=== PATIENT | male | born 1990 | race Caucasian/White ===

== ENCOUNTER 2024-05-28 10:18 | Emergency (ER) | payer OTHER, SELFPAY ==
[2024-05-28 10:24] VITALS: BP 146/99; PULSE 83; RESP 16; TEMP 36.8; O2SAT 99; BMI 25.7
--- NOTE | 2024-05-28 10:31 | ED_ITS ---
HPI - Extremity Problem General: Chief complaint: Extremity Problem,Nontraumatic Stated complaint: MHE, SI left ankle pain Time Seen by Provider: 05/28/24 10:28 Source: patient Mode of arrival: ambulatory Limitations: no limitations History of Present Illness: 33-year-old male states he has been havi ng left foot pain for the last 2 years he states he is sprained it multiple times and has had continued pain over the inner portion of his left foot. States that he is on his feet for more an hour it causes a burning pain that is improved with rest. He states he is also been having extreme anxiety because he is out of his Prozac he denies SI or HI Associated symptoms: Deny chest pain, fever(s) or rash Review of Systems Const: Denies: fever(s), chills, body aches or change in appetite ENMT: Denies: throat pain or dental pain Card: Denies: chest pain Resp: Denies: dyspnea GI: Denies: abdominal pain, nausea, vomiting or diarrhea Musc: Reports: extremity pain; Denies: neck pain or back pain Skin/Breast: Denies: rash Neuro: Denies: headache(s) Physical Exam Const: COMMON NORMALS: no acute distress, patient oriented x3 and healthy appearing HENMT: COMMON NORMALS: normocephalic and atraumatic HEAD & SCALP: normocephalic and atraumatic Eye: COMMON NORMALS: conjunctivae normal CONJUNCTIVA: Yes conjunctivae normal Neck/C-Spine: COMMON NORMALS: full ROM and supple Chest: COMMONS NORMALS: normal inspection of the chest Resp: COMMON NORMALS: normal respiratory effort Extremity: COMMON NORMALS: normal to inspection and full ROM NARRATIVE EXTREMITY EXAM: Slight tenderness to medial portion of foot no obvious deformity Neuro: COMMON NORMALS: patient oriented x3, moves all extremities and no focal motor deficits Psych: COMMON NORMALS: mental status grossly normal, Normal thought process present and cooperative THOUGHT PROCESS: Normal thought process present THOUGHT CONTENT: No Suicidality present and No Homicidality present Skin: COMMON NORMALS: no rashes or lesions noted and no wounds GENERAL SKIN EXAM: no rashes or lesions noted Course Vital Signs: Vital signs: Vital Signs Temperature 98.2 F 05/28/24 10:24 Pulse Rate 83 05/28/24 10:24 Respiratory Rate 16 05/28/24 10:24 Blood Pressure 146/99 05/28/24 10:24 Pulse Oximetry 99 05/28/24 10:24 Oxygen Delivery Me thod Room Air 05/28/24 10:24 MDM - Extremity (Nontraumatic) Medical Decision Making Patient presents here with left foot pain he also has some anxiety he is not suicidal or homicidal we will prescribe him Prozac x-ray here shows no acute fracture we will get him follow-up with podiatry return if worsening. Medical Records I reviewed the patient's medical records. Lab Data Radiology Impressions Ankle X-Ray 05/28/24 10:31 IMPRESSION: No acute findings. Foot X-Ray 05/28/24 10:31 IMPRESSION: No acute findings. XR interpretation done by ED provider, pending radiology final review ED provider radiology interpretation(s): xr L foot: no acute fx xr L ankle no acute fx Discharge Plan Discharge Patient Disposition: Home Clinical Impression: Chronic pain in left foot, Anxiety Condition: Stable Prescriptions: New Prozac 40 mg capsule 40 mg PO DAILY Qty: 30 0RF Discharge Orders: Discharge ED (Routine); Ordered 05/28/24 Ordered By: David Mccarthy Referrals: Huang Rico DPM [Physician] - 4-7 days Discharge Diet: Advance as tolerated Discharge Activity: Resume usual activity Patient Instructions: Foot Sprain (ED) Coding Level of Care Code ED Brain Wave Technician for Lynda Rodriguez
--- NOTE | 2024-05-28 10:31 | XRR_ITS ---
PROCEDURE INFORMATION: Exam: XR Left Ankle Exam date and time: 05/28/2024 10:40 AM Age: 33 years old Clinical indication: Pain; Ankle; Left TECHNIQUE: Imaging protocol: Radiologic exam of the left ankle. Views: 3 or more views. COMPARISON: CR XR foot LT min 3V* [id number] 05/28/2024 10:38 AM FINDINGS: Bones/joints: Normal. Soft tissues: Normal. XR/XR ankle LT min 3V* [id number] IMPRESSION: No acute findings.
--- NOTE | 2024-05-28 10:31 | XRR_ITS ---
PROCEDURE INFORMATION: Exam: XR Left Foot Exam date and time: 05/28/2024 10:38 AM Age: 33 years old Clinical indication: Pain; Foot; Left TECHNIQUE: Imaging protocol: Radiologic exam of the left foot. Views: 3 or more views. COMPARISON: No relevant prior studies available. FINDINGS: Bones/joints: Accessory ossicles are a normal variant. Otherwise, unremarkable. Soft tissues: Normal. XR/XR foot LT min 3V* [id number] IMPRESSION: No acute findings.
[2024-05-28] MEDS: fluoxetine 20 mg Capsule 40 MG PO (11:55)
--- NOTE | 2024-05-29 13:15 | DCPLANNER ---
messaged podiatry for er f/u
== END 2024-05-28 11:58 | disposition home or self-care (01) ==
PROVIDERS: Emergency Provider Emergency Medicine
DX: G89.29 Other chronic pain (principal); M79.672 Pain in left foot; F41.9 Anxiety disorder, unspecified
CPT/HCPCS: 73610; 73630; 99284

== ENCOUNTER 2024-05-29 17:03 | Emergency (ER) | payer OTHER, SELFPAY ==
[2024-05-29 17:15] VITALS: BP 131/87; PULSE 94; RESP 20; TEMP 36.8; O2SAT 97; BMI 27.1
--- NOTE | 2024-05-29 17:20 | ECG_ITS ---
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 Measurements Intervals [place] Rate: 92 P: 67 [place]: 161 QRS: 55 QRSD: 120 T: 55 QT: 344 QTc: 427 Interpretive Statements SINUS RHYTHM RIGHT BUNDLE BRANCH BLOCK [120+ ms QRS DURATION, UPRIGHT V1, 40+ ms S IN I/aVL/V4/V5/V6] No previous ECG available for comparison Electronically Signed On 05-30-2024 9:09:51 CDT by Rigo Thomas M.D. [id number]
[2024-05-29 18:41] LABS: Basophils # 0.1 10^3/uL (0.0-0.1); Basophils % 0.6 %; Eosinophils # 0.1 10^3/uL (0.0-0.8); Eosinophils % 1.3 %; Hematocrit 39.9 % (37-53); Lymphocytes # 2.6 10^3/uL (0.8-4.8); Lymphocytes % 26.7 %; Mean Corpuscular HGB Conc 31.3 g/dL (30-55); Mean Corpuscular Hemoglobin 19.5 pg (27-33); Mean Corpuscular Volume 62.2 fl (82-101); Mean Platelet Volume 10.1 fL (7.4-10.4); Monocytes # 0.7 10^3/uL (0.2-0.9); Monocytes % 7.1 %; Neutrophils # 6.27 10^3/uL (1.8-7.7); Neutrophils % 63.7 %; Nucleated Red Blood Cells # 0.1 /100WBC; Nucleated Red Blood Cells % 0.5 %; Platelet Count 335 10^3/cmm (157-399); Red Blood Count 6.41 10^6/uL (3.85-5.65); Red Cell Distribution Width 18.2 % (12.1-15.1); White Blood Count 9.85 10^3/uL (3.29-11.43)
[2024-05-29 18:56] LABS: Alanine Aminotransferase 21 U/L (0-41); Albumin Level 4.5 g/dL (3.5-5.2); Alkaline Phosphatase 54 U/L (40-130); Anion Gap 19.4 (5-19); Aspartate Amino Transferase 45 U/L (0-40); Blood Urea Nitrogen 7 mg/dL (6-20); Calcium 8.9 mg/dL (8.5-10.5); Carbon Dioxide 21 mmol/L (22-29); Chloride 103 mmol/L (98-107); Creatinine Clr Calc Pharmacy 123.1201; Globulin 2.8 g/dL (1.3-4.6); Glomerular Filtration Rate 86.1 mL/min (90-130); Glucose 96 mg/dL (65-115); Lipase 50 U/L (13-60); Osmolality Calculated 288 mOsm/kg (285-295); Potassium 3.4 mmol/L (3.5-5.1); Sodium 140 mmol/L (136-145); Total Bilirubin 0.7 mg/dL (0.15-1.2); Total Protein 7.3 g/dL (6.6-8.7)
--- NOTE | 2024-05-29 19:16 | XRR_ITS ---
PROCEDURE INFORMATION: Exam: XR Chest Exam date and time: 05/29/2024 7:48 PM Age: 33 years old Clinical indication: Pain; Angina pectoris; Additional info: Cp TECHNIQUE: Imaging protocol: Radiologic exam of the chest. Views: 1 view. COMPARISON: No relevant prior studies available. FINDINGS: Lungs: Unremarkable. No consolidation. Pleural spaces: Unremarkable. No pleural effusion. No pneumothorax. Heart/Mediastinum: Unremarkable. No cardiomegaly. Bones/joints: Unremarkable for age. XR/XR chest 1V portable [id number] IMPRESSION: Negative chest exam.
--- NOTE | 2024-05-29 19:53 | ECG_ITS ---
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 Measurements Intervals [place] Rate: 84 P: 71 [place]: 149 QRS: 67 QRSD: 113 T: 66 QT: 341 QTc: 404 Interpretive Statements SINUS RHYTHM WITH SINUS ARRHYTHMIA INCOMPLETE RIGHT BUNDLE BRANCH BLOCK [90+ ms QRS DURATION, TERMINAL R IN V1/V2, 40+ ms S IN I/aVL/V4/V5/V6] Compared to ECG 05/29/2024 17:08:49 Incomplete right bundle-branch block now present Right bundle-branch block no longer present Electronically Signed On 05-30-2024 9:09:32 CDT by Rigo Thomas M.D. [id number]
[2024-05-29 20:04] LABS: Troponin(5th) Baseline < 6 ng/L (0-15)
--- NOTE | 2024-05-29 20:10 | W.ED.ANXIETY ---
HPI - Anxiety General: Chief Complaint: Anxiety Stated Complaint: cramping stomach, nauseau, tight chest Time Seen by Provider: 05/29/24 19:53 History of Present Illness: 33-year-old male with multiple complaints. Patient reports he has been out in the heat a lot today and this feels just generalized weak and not feeling well. Patient also under a lot of stress and is having a lot of anxiety. Patient has had a hard time recently dealing with the divorce and taking care of his kids and having difficulty working because of leg injury. Patient was seen here yesterday with a negative x-ray of his leg. He was also here needing Prozac prescription and started back on Prozac yesterday. His dad reports he is just been having a hard time with stuff and is very anxious. He was complaining of some carpal spasms earlier today. Also reports that he has been out in the heat a lot and thinks he may have had some heat related illness. Associated symptoms: Reports chest pain, malaise, nausea and palpitations; Deny vomiting Review of Systems Const: Reports: body aches, fatigue and malaise Eyes: Denies: change in vision or blurry vision Card: Reports: chest pain and palpitations Resp: Reports: dyspnea GI: Reports: nausea and other (Generalized cramping); Denies: vomiting Neuro: Denies: numbness in extremities or weakness in extremities Psych: Reports: anxiety and depression Physical Exam Const: GENERAL APPEARANCE: anxious; not in distress ORIENTATION/CONSCIOUSNESS: Yes awake, Yes oriented to person and Yes oriented to place Resp: COMMON NORMALS: normal respiratory effort, No use of accessory muscles and clear to auscultation bilaterally EFFORT & INSPECTION: Yes able to speak in complete sentences AUSCULTATION: clear to auscultation bilaterally Cardio: COMMON NORMALS: regular rate and regular rhythm RATE: regular rate RHYTHM: regular rhythm GI: COMMON NORMALS: Soft to palpation and non-tender PALPATION: Yes Soft to palpation Extremity: COMMON NORMALS: full ROM and capillary refill normal Neuro: SENSORIUM/ORIENTATION: Yes oriented to person and Yes oriented to place Psych: ATTITUDE: Yes Withdrawn affect present SPEECH: Yes slow MOOD & AFFECT: Yes depressed mood and Yes anxious Skin: COMMON NORMALS: no rashes or lesions noted GENERAL SKIN EXAM: no rashes or lesions noted Course Vital Signs: Vital signs: Vital Signs Temperature 98.2 F 05/29/24 17:15 Pulse Rate 82 05/29/24 21:26 Respiratory Rate 16 05/29/24 21:26 Blood Pressure 143/90 05/29/24 21:26 Pulse Oximetry 99 05/29/24 21:26 MDM - Anxiety Medical Decision Making Patient's diagnostics as ordered reviewed with interpretation by me. Patient's symptoms are consistent with stress reaction and hyperventilation. Patient also likely has some symptoms due to some heat exposure. Discussed with him need to follow-up with his primary care provider to work on his stress and possibly his behavioral health consult. Also gave him supportive care and recommendations for heat exposure. Patient was stable and discharged home. Lab Data 05/29/24 18:29 05/29/24 18:29 Laboratory Results WBC 9.85 10^3/uL (3.29-11.43) 05/29/24 18:29 RBC 6.41 10^6/uL (3.85-5.65) H 05/29/24 18:29 Hgb 12.50 g/dL (11.27-16.99) 05/29/24 18:29 Hct 39.9 % (37-53) 05/29/24 18: MCV 62.2 fl (82-101) L 05/29/24 18: MCH 19.5 pg (27-33) L 05/29/24 18: MCHC 31.3 g/dL (30-55) 05/29/24 18:29 RDW 18.2 % (12.1-15.1) H 05/29/24 18: Plt Count 335 10^3/cmm (157-399) 05/29/24 18:29 MPV 10.1 fL (7.4-10.4) 05/29/24 18: Neut % (Auto) 63.7 % 05/29/24 18: Lymph % (Auto) 26.7 % 05/29/24 18: [place] % (Auto) 7.1 % 05/29/24 18:29 Eos % (Auto) 1.3 % 05/29/24 18: Baso % (Auto) 0.6 % 05/29/24 18:29 Neut # (Auto) 6.27 10^3/uL (1.8-7.7) 05/29/24 18:29 Lymph # (Auto) 2.6 10^3/uL (0.8-4.8) 05/29/24 18:29 [place] # (Auto) 0.7 10^3/uL (0.2-0.9) 05/29/24 18:29 Eos # (Auto) 0.1 10^3/uL (0.0-0.8) 05/29/24 18: Baso # (Auto) 0.1 10^3/uL (0.0-0.1) 05/29/24 18: Nucleated RBC % (auto) 0.5 % 05/29/24 18: Nucleated RBCs # 0.1 /100WBC 05/29/24 18: Sodium 140 mmol/L (136-145) 05/29/24 18: Potassium 3.4 mmol/L (3.5-5.1) L 05/29/24 18: Chloride 103 mmol/L (98-107) 05/29/24 18: Carbon Dioxide 21 mmol/L (22-29) L 05/29/24 18: Anion Gap 19.4 (5-19) H 05/29/24 18:29 BUN 7 mg/dL (6-20) 05/29/24 18: Creatinine 1.0 mg/dL (0.7-1.2) 05/29/24 18: GFR Calculation 86.1 mL/min (90-130) L 05/29/24 18:29 Glucose 96 mg/dL (65-115) 05/29/24 18: Calculated Osmolality 288 mOsm/kg (285-295) 05/29/24 18: Calcium 8.9 mg/dL (8.5-10.5) 05/29/24 18: Total Bilirubin 0.7 mg/dL (0.15-1.2) 05/29/24 18: AST 45 U/L (0-40) H 05/29/24 18:29 ALT 21 U/L (0-41) 05/29/24 18:29 Alkaline Phosphatase 54 U/L (40-130) 05/29/24 18:29 Creatine Kinase 164 U/L (39-308) 05/29/24 18:29 Troponin T Baseline < 6 ng/L (0-15) 05/29/24 18:29 Troponin T 120 Minute 6.00 ng/L (0-15) 05/29/24 20:28 Delta Troponin T 0.40312 ABS# (0-10) 05/29/24 20:28 Total Protein 7.3 g/dL (6.6-8.7) 05/29/24 18:29 Albumin 4.5 g/dL (3.5-5.2) 05/29/24 18: Globulin 2.8 g/dL (1.3-4.6) 05/29/24 18:29 Lipase 50 U/L (13-60) 05/29/24 18:29 Urine Color Yellow (Yellow) 05/29/24 20:45 Urine Appearance Clear (CLEAR) 05/29/24 20:45 Urine pH 8.0 (5-7) A 05/29/24 20:45 Ur Specific Alexander 1.018 (1.005-1.030) 05/29/24 20:45 Urine Protein Trace (Negative) A 05/29/24 20:45 Urine Glucose (UA) Negative (Normal) 05/29/24 20:45 Urine Ketones Negative (Negative) 05/29/24 20:45 Urine Blood Negative (Negative) 05/29/24 20:45 Urine Nitrate Negative (Negative) 05/29/24 20:45 Urine Bilirubin Negative (Negative) 05/29/24 20:45 Urine Urobilinogen 1.0 mg/dL (Negative) 05/29/24 20:45 Ur Leukocyte Esterase Negative (Negative) 05/29/24 20:45 Urine RBC 0-2 /hpf (0-2) 05/29/24 20:45 Urine WBC 0-5 /hpf (0-5) 05/29/24 20:45 Ur Squamous Epith Cells 0-5 /hpf (0-5) 05/29/24 20:45 Amorphous Sediment Not Reportable 05/29/24 20:45 Urine Bacteria None seen /hpf (NONE) 05/29/24 20:45 Hyaline Casts 0-4 /lpf H 05/29/24 20:45 Urine Opiates Screen Negative ng/mL (Negative) 05/29/24 20:45 Ur Barbiturates Screen Negative ng/mL (Negative) 05/29/24 20:45 Ur Phencyclidine Scrn Negative ng/mL (Negative) 05/29/24 20:45 Ur Amphetamines Screen Negative ng/mL (Negative) 05/29/24 20:45 U Benzodiazepines Scrn Negative ng/mL (Negative) 05/29/24 20:45 Urine Cocaine Screen Negative ng/mL (Negative) 05/29/24 20:45 U Marijuana (THC) Screen Positive ng/mL (Negative) H 05/29/24 20:45 XR interpretation done by ED provider, pending radiology final review ED provider radiology interpretation(s): No acute findings noted Discharge Plan Discharge Patient Disposition: Home Clinical Impression: Anxiety Heat exposure Qualifiers: Encounter type: initial encounter Qualified Code(s): T67.9XXA - Effect of heat and light, unspecified, initial encounter Condition: Stable Prescriptions: No Action Prozac 40 mg capsule 40 mg PO DAILY Qty: 30 0RF Discharge Orders: Discharge ED (Routine); Ordered 05/29/24 Ordered By: David Mccarthy Discharge Diet: Advance as tolerated Discharge Activity: Increase activity as tolerated Patient Instructions: Heat Cramps - Adult, Heat Exhaustion (ED), Stress (ED), Anxiety (ED), Opioid Safety, Pain Management Activity Restrictions/Additional Instructions: Please follow-up with your primary care provider and consider getting a behavioral health specialist to help with your stresses going on right now. Please be sure you are drinking plenty of fluids and be careful with extended heat exposure. Coding Level of Care Code ED Frog Or Oyster Farmworker for Lynda Rodriguez
[2024-05-29] MEDS: sodium chloride 0.9% 1,000 ML 999 ML IV (20:21)
[2024-05-29] MEDS: hyDROXYzine 25 mg Capsule PO (20:21)
[2024-05-29 20:41] LABS: Creatine Phosphokinase 164 U/L (39-308)
[2024-05-29 20:58] LABS: Troponin 5 2HR Delta 0.00001 ABS# (0-10)
[2024-05-29 21:08] LABS: Charge for UA Resulting for Rev
[2024-05-29 21:11] LABS: Bilirubin Urine Negative (Negative); Blood Urine Negative (Negative); Glucose Urine UA Negative (Normal); Ketones Urine Negative (Negative); Leukocyte Esterase Urine Negative (Negative); Nitrate Urine Negative (Negative); Protein Urine Trace (Negative); Specific Gravity, Urine 1.018 (1.005-1.030); Urine Appearance Clear (CLEAR); Urine Color Yellow (Yellow)
[2024-05-29 21:16] LABS: Bacteria Urine None Seen /hpf; Hyaline Casts Urine 0-4 /lpf; RBC Urine 0-2 /hpf (0-2); Squamous Epithelial Cell Urine 0-5 /hpf (0-5); WBC Urine 0-5 /hpf (0-5)
[2024-05-29 21:19] LABS: Amphetamines Screen Urine Negative (Negative); Barbiturates Screen Urine Negative (Negative); Benzodiazepines Screen Urine Negative (Negative); Cocaine Screen Urine Negative (Negative); Opiate Screen Urine Negative (Negative); PCP Screen Urine Negative (Negative); THC Screen Urine Positive (Negative)
[2024-05-29 21:26] VITALS: BP 143/90; PULSE 82; RESP 16; O2SAT 99
== END 2024-05-29 21:27 | disposition home or self-care (01) ==
PROVIDERS: Emergency Medicine; Emergency Provider Student in an Organized Health Care Education/Training Program
DX: F41.9 Anxiety disorder, unspecified (principal); T67.9XXA Effect of heat and light, unspecified, initial encounter; X32.XXXA Exposure to sunlight, initial encounter
CPT/HCPCS: 36415; 71045; 80053; 80306; 81003; 81015; 82550; 83690; 84484; 85025; 93005; 99285; J7030

== ENCOUNTER 2024-11-13 17:13 | Emergency (ER) | payer OTHER, MEDICAID, SELFPAY ==
[2024-11-13 17:15] VITALS: BP 172/120; PULSE 108; RESP 18; TEMP 37.2; O2SAT 99; BMI 33.2
--- NOTE | 2024-11-13 17:40 | W.ED.ANXIETY ---
HPI - Anxiety General: Chief Complaint: Anxiety Stated Complaint: panic attack Time Seen by Provider: 11/13/24 17:34 Source: patient Mode of arrival: ambulatory Limitations: no limitations History of Present Illness: Patient is a 34-year-old male presents to ED today following a panic attack that occurred at home approximately an hour ago. Patient states he is a longstanding history of anxiety. He states he has had 1 previous similar panic attack. He states he had an episode of severe emotional lability and began crying. He states he then got short of breath, had chest pain, difficulty breathing. Episode lasted for 20 minutes before it resolved. Upon arrival to the emergency department he states that he feels better. Patient states he takes Prozac for his anxiety. States he is not suicidal or homicidal. MD complaint: anxiety Onset (ago): hour(s) Severity: moderate Quality: improving Place: home History of similar episodes: Yes Provoking factors: emotional stress Relieving factors: nothing Exacerbating factors: nothing Associated symptoms: Reports chest pain (resolved); Deny chills, fever(s), headache(s), malaise, nausea, palpitations, syncope or vomiting Related Data Previous Rx's Medication Instructions Recorded fluoxetine 40 mg capsule (Prozac) 40 mg PO DAILY #30 caps 11/05/24 triamcinolone acetonide 0.5 % 1 applic topical BID #15 grams 11/05/24 topical cream Allergies Allergy/AdvReac Type Severity Reaction Status Date / Time methylprednisolone Allergy ALGY-Hives Verified 11/05/24 12:15 [From Solu-Medrol] Review of Systems Const: Denies: fever(s), chills, body aches, fatigue or malaise Card: Reports: chest pain (resolved); Denies: palpitations, irregular heart rhythm, edema, swelling of feet/ankles, syncope, pre-syncope, dyspnea on exertion, orthopnea, leg pain with exertion or acrocyanosis Resp: Reports: dyspnea (resolved); Denies: productive cough or non-productive cough GI: Denies: nausea or vomiting Neuro: Denies: headache(s) or dizziness [facility] ED PFSH: Medical History Psoriasis Social History Smoking and tobacco/nicotine status: current every day tobacco/nicotine user Physical Exam Const: COMMON NORMALS: no acute distress, average body habitus, patient oriented x3, no limitations, healthy appearing, alert and well nourished GENERAL APPEARANCE: cooperative ORIENTATION/CONSCIOUSNESS: Yes awake, Yes oriented to person, Yes oriented to place and Yes oriented to time Resp: COMMON NORMALS: normal respiratory effort and clear to auscultation bilaterally AUSCULTATION: clear to auscultation bilaterally Cardio: COMMON NORMALS: regular rate and regular rhythm RATE: regular rate RHYTHM: regular rhythm Extremity: COMMON NORMALS: no clubbing, cyanosis or edema, no calf tenderness and no pedal edema GENERAL: Yes normal exam except as noted Neuro: COMMON NORMALS: patient oriented x3 SENSORIUM/ORIENTATION: Yes alert, Yes oriented to person, Yes oriented to place and Yes oriented to time Psych: COMMON NORMALS: mental status grossly normal, Normal thought process present, cooperative, normal affect, speech normal, activity/motor behavior normal, denies hallucinations, denies homicidal ideation and denies suicidal ideation APPEARANCE: Yes grossly normal ATTITUDE: Yes calm ACTIVITY/MOTOR BEHAVIOR: Yes appropriate eye contact SPEECH: Yes normal speech MOOD & AFFECT: Yes euthymic mood THOUGHT PROCESS: Normal thought process present THOUGHT CONTENT: Yes Normal thought content present MEMORY/COGNITION: Yes memory grossly intact and Yes cognition grossly intact INSIGHT: Good insight present (Psych) JUDGEMENT: Good judgement present (Psych) Course Vital Signs: Vital signs: Vital Signs Temperature 99.0 F 11/13/24 17:15 Pulse Rate 108 H 11/13/24 17:15 Respiratory Rate 18 11/13/24 17:15 Blood Pressure 172/120 11/13/24 17:15 Pulse Oximetry 99 11/13/24 17:15 Oxygen Delivery Me thod Room Air 11/13/24 17:15 MDM - Anxiety Medical Decision Making Patient states he only came to the emergency department to be in a safe space in case he passed out as his last panic attack caused him to hyperventilate and passed out. Upon arrival to the emergency department he states his panic attack is pretty well subsided. 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 His EKG today is unchanged from previous. CXR is unremarkable. Patient would like to go home which I think is reasonable. Of note, on patient's suicidal assessment screening in triage he reportedly answered yes to suicidal behaviors in the last 3 months but patient adamantly denies this and states this should have been recorded as a no . He tells me he is not suicidal whatsoever and has not had any suicidal thoughts recently. Patient will be allowed discharge Medical Records I reviewed the patient's medical records. XR interpretation done by ED provider, pending radiology final review Discharge Plan Discharge Patient Disposition: Home Clinical Impression: Panic attack Condition: Stable Prescriptions: No Action Prozac 40 mg capsule 40 mg PO DAILY Qty: 30 0RF triamcinolone acetonide 0.5 % cream 1 applic topical BID Qty: 15 1RF Discharge Orders: Discharge ED (Routine); Ordered 11/13/24 Ordered By: Liz Mendez Patient Instructions: Anxiety (ED), Panic Attack Coding Level of Care Code ED Human Resources Administrator for Lynda Rodriguez
--- NOTE | 2024-11-13 17:51 | XRR_ITS ---
PROCEDURE INFORMATION: Exam: XR Chest Exam date and time: 11/13/2024 6:05 PM Age: 34 years old Clinical indication: Shortness of breath; Additional info: SOB TECHNIQUE: Imaging protocol: Radiologic exam of the chest. Views: 1 view. COMPARISON: CR XR chest 1V portable [id number] 05/29/2024 7:48 PM FINDINGS: Lungs: Unremarkable. No consolidation. Pleural spaces: Unremarkable. No pleural effusion. No pneumothorax. Heart/Mediastinum: Unremarkable. No cardiomegaly. Bones/joints: Unremarkable. XR/XR chest 1V portable [id number] IMPRESSION: No acute findings.
--- NOTE | 2024-11-13 17:51 | ECG_ITS ---
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1990 Requested By: Liz Mendez Order Number: [id number] Eliana MD: ARGENIS MYERS Measurements Intervals [place] Rate: 103 P: 89 [place]: 154 QRS: 94 QRSD: 116 T: 70 QT: 333 QTc: 437 Interpretive Statements SINUS TACHYCARDIA BORDERLINE RIGHT AXIS DEVIATION [QRS AXIS > 90] MODERATE INTRAVENTRICULAR CONDUCTION DELAY [110+ ms QRS DURATION] ABNORMAL RHYTHM ECG Compared to ECG 05/29/2024 19:53:50 Intraventricular conduction delay now present Sinus rhythm no longer present Sinus arrhythmia no longer present Incomplete right bundle-branch block no longer present Electronically Signed On 11-14-2024 23:33:01 SIMPLEX OPERATOR by ARGENIS MYERS [id number]
[2024-11-13 18:41] VITALS: BP 144/98
[2024-11-13 18:42] VITALS: BP 144/98; PULSE 81; O2SAT 99
== END 2024-11-13 18:42 | disposition home or self-care (01) ==
PROVIDERS: Emergency Provider Physician Assistant
DX: F41.0 Panic disorder [episodic paroxysmal anxiety] (principal); Z72.0 Tobacco use
CPT/HCPCS: 71045; 93005; 99284

== ENCOUNTER 2025-04-30 08:57 | Emergency (ER) | payer SELFPAY ==
--- OUTSIDE RECORDS SUMMARY | 2025-04-30 09:02 | XMS_ITS | Patient Health Record ---
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 Role Phone SilasJr suarezn Primary Care Provider Teto Henriquez Unavailable [phone] TETO HENRIQUEZ Unavailable Unavailable Allergies Allergen (clinical drug ingredient) Drug/Non Drug Allergy documented on EMR Reaction Allergy Type Onset Date Status methylprednisolone MethylPREDNISolone Unknown Drug Allergy Active Reason For Referral No Information Medications Medication SIG (Take, Route, Frequency, Duration) Notes Start Date End Date Status Citalopram Hydrobromide 40 MG 1 tablet Orally Once a day for 30 day(s) Active Immunizations Vaccine Route Administration Date Status Comme nts COVID-19 Vaccine (Pfizer) Dose #1 Unknown 02/24/2021 Ad ministered COVID-19 Vaccine (Pfizer) Dose #2 Unknown 03/17/2021 Ad ministered Social History Tobacco Use: Social History Observation Description Date Details (start date - stop date) Unknown xTobacco Use/Smoking Question Answer Notes Are you a Uses tobacco in other forms Additional Findings: Tobacco User e-Cigarette Additional Findings: Tobacco Non-User Ex-moderat e cigarette smoker (10-19/day) Alcohol Screen (Audit-C) Question Answer Notes Did you have a drink contain ing alcohol in the past year? Yes How often did you have a dri nk containing alcohol in the past year? Monthly or less (1 point) How many drinks did you have on a typical day when you were drinking in the past year? 1 or 2 drinks (0 point) How often did you have 6 or more drinks on one occasion in the past year? Never (0 point) Points 1 Interpretation Negative Tobacco use other than smoking: Question Answer Notes Are you an other tobacco user? No PHQ-9 Question Answer Notes Little interest or pleasure in doing things Not at all Feeling down, depressed, or hopeless Not at all Trouble falling or staying asleep, or sleeping t oo much Not at all Feeling tired or having little energy Not at all Poor appetite or overeating Not at all Feeling bad about yourself, or that you are a failure, or have let yourself or your family down Not at all Trouble concentrating on thi ngs, such as reading the newspaper or watching television Not at all Moving or speaking so slowly that other people could have noticed. Or the opposite ? being so fidgety or restless that you have been moving around a lot more than usual Not at all Thoughts that you would be b tri off , or of hurting yourself in some way Not at all Total Score 0 Problems Problem Type SNOMED Code ICD Code Onset Dates Problem Status W/U Status Risk Notes Problem Thalassemia minor (66601634) Thalassemia minor (D56.3) Active confirmed Problem Chronic rhinitis (45518437) Chronic rhinitis (J31.0) Active confirmed Problem Esophageal reflux finding (323180481) Gastroesophageal reflux (K21.9) Active confirmed Problem Generalized anxiety disorder (73618640) ARELY (generalized anxiety disorder) (F41.1) Active confirmed Problem Microcytic anemia (045819088) Microcytic anemia (D50.9) Active confirmed Problem Gastroesophageal reflux disease (144126891) GERD (gastroesophageal reflux disease) (K21.9) Active confirmed Problem Tobacco use (764709579) Vapes nicotine containing substance (Z72.0) Active confirmed 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 0 Chronic rhinitis J31.0 Cjnlv-Intwakhiv-Uyend (WPW) syndrome I45 .6 Anxiety Surgical History Surgery Date(Month/Year) Cardiac ablation x's 2
--- OUTSIDE RECORDS SUMMARY | 2025-04-30 09:02 | XMS_ITS | Patient Health Record ---
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 Role Phone GarciasWoodrow Primary Care Provider [phone] Allergies Allergen (clinical drug ingredient) Drug/Non Drug Allergy documented on EMR Reaction Allergy Type Onset Date Status methylprednisolone SOLU-Medrol Unknown Drug Allergy Active Reason For Referral No Information Medications Medication SIG (Take, Route, Frequency, Duration) Notes Start Date End Date Status FLUoxetine HCl 20 mg TAKE ONE CAPSULE BY MOUTH ONCE DAILY for 30 Active Triamcinolone Acetonide 0.1 % 1 application Externally Twice a day for 5 day(s) 12/27/2022 Active Voltaren 1 % 2gm three times a da y as needed Externally as directed for 30 day(s) Not-Takin g Diclofenac 35 MG 1 capsule as needed Orally Three times a day for 10 day(s) 01/04/2022 Not-Taking LORazepam 0.5 MG 1 tablet as needed f or panic attack Orally twice a day, as needed for 30 days 11/21/2022 Active Clindamycin HCl 300 MG 1 capsules Orally tid for 10 day(s) 01/04/2022 Not-Taking Social History Tobacco Use: Social History Observation Description Date Details (start date - stop date) Current Smoker NA - NA Sex Assigned At : Social History Observation Description Sex Assigned At Male . Question Answer Notes Are you a: current smoker How often do you smoke cigarettes? every day How many cigarettes a day do you smoke? 5 or les s . Question Answer Notes Did you have a drink containing alcohol in the p ast year? No Points 0 Interpretation Negative Depression Screening PHQ-9 (If positive PHQ-2) Question Answer Notes Little interest or pleasure doing things? Severa l days Feeling down, depressed, or hopeless? Several da ys Trouble falling or staying asleep, or sleeping t oo much? Not at all Feeling tired or having little energy? Several d ays Poor appetite or overeating? Several days Feeling bad about yourself-o r that you are failure or have let yourself or family down? Not at all Trouble concentrating on thi ngs, such as reading the newspaper or watching television? Nearly every day Moving or speaking so slowly that other people could have noticed. Or the opposite- being so fidgety or restless that you have been moving around a lot more than usual Not at all Thoughts that you would be b tri off , or of hurting yourself in some way? Not at all Total Score 7 Intepretation Mild Depression PHQ2 (12+) Question Answer Notes Little interest or pleasure in doing things? Sev eral days Feeling down, depressed, or hopeless? Several da ys Total Score 2 Problems Problem Type SNOMED Code ICD Code Onset Dates Problem Status W/U Status Risk Notes Problem 634188605 Tobacco abuse (Z72.0) Active confirmed Problem 719193863 Panic attack (F41.0) Active confirmed Problem 71341499 Anxiety (F41.9) Active confirmed Problem 92084335 Generalized anxi ety disorder (F41.1) Active confirmed Problem 934384037 Gastroesophageal reflux disease without esophagitis (K21.9) Active confirmed Problem 705113407 Moderate episode of recurrent major depressive disorder (F33.1) Active confirmed Plan Of Treatment No Information Insurance Providers Payer Name Payer Address Payer Phone Subscriber Number Group Number Insured Name Patient Relationship to Insured Coverage Start Date Coverage End Date [employer] [address] [place] [address] [id number] Sekou Worthy Self - patient is the insured 3 Medical (General) History Medical History History ICD Code Esophageal reflux thalassemia minor scoliosis Jinny-Parkinson- White Syndrome Surgical History Surgery Date(Month/Year) ablasion for WPW syndrome
--- NOTE | 2025-04-30 09:06 | XR_ITS ---
WS: [id number] XR foot RT min 3V* [id number] REASON FOR EXAM: nail FINDINGS: No fracture or other focal bony abnormality. Joint spaces of the forefoot, midfoot, and hindfoot are intact. No radiopaque foreign body is identified. XR/XR foot RT min 3V* [id number] IMPRESSION: No significant abnormality
[2025-04-30 09:36] VITALS: BP 148/103; PULSE 84; RESP 16; TEMP 36.7; O2SAT 97; BMI 30.5
--- NOTE | 2025-04-30 09:42 | W.ED.EXTPRO ---
HPI - Extremity Problem General: Chief complaint: Extremity Injury, Lower Stated complaint: stepped on nail R foot Time Seen by Provider: 04/30/25 09:06 History of Present Illness: 34-year-old male presents emergency room after stepping nail with his right foot yesterday patient has a stab wound to the sole of the foot the nail with out. He is unsure of last tetanus shot no fever sweats chills some mild discomfort. Associated symptoms: Deny fever(s) Related Data Previous Rx's ?Medication ?Instructions ?Recorded fluoxetine 40 mg capsule (Prozac) 40 mg PO DAILY #30 caps 11/05/24 triamcinolone acetonide 0.5 % 1 applic topical BID #15 grams 11/05/24 topical cream amoxicillin 875 mg-potassium 1 tab PO BID #14 tabs 04/30/25 clavulanate 125 mg tablet diclofenac sodium 75 mg 75 mg PO Q12H PRN pain #20 tabs 04/30/25 tablet,delayed release Allergies Allergy/AdvReac Type Severity Reaction Status Date / Time methylprednisolone (From Allergy ALGY-Hives Verified 11/05/24 12:15 Solu-Medrol) Review of Systems Const: Denies: fever(s) or chills PFSH ED PFSH: Medical History Psoriasis Social History Smoking and tobacco/nicotine status: current every day tobacco/nicotine user Physical Exam Extremity: OTHER: Right foot small puncture wound on the sole underlying 2nd and 3rd MP joints. No drainage at this time. No redness no erythema Course Vital Signs: Vital signs: Vital Signs Temperature 98.1 F 04/30/25 09:36 Pulse Rate 84 04/30/25 09:36 Respiratory Rate 16 04/30/25 09:36 Blood Pressure 148/103 04/30/25 09:36 Pulse Oximetry 97 04/30/25 09:36 Oxygen Delivery Me thod Room Air 04/30/25 09:36 MDM - Extremity (Nontraumatic) Medical Decision Making Given Ancef in the emergency room started on Augmentin tetanus updated follow-up with primary care. Lab Data Radiology Impressions Foot X-Ray 04/30/25 09:06 IMPRESSION: No significant abnormality All radiology interpretation(s) finalized by discharge Discharge Plan Discharge Patient Disposition: Home Clinical Impression: Injury of right foot Condition: Stable Prescriptions: New amoxicillin-pot clavulanate 875-125 mg tablet 1 tab PO BID Qty: 14 0RF diclofenac sodium 75 mg tablet,delayed release (DR/EC) 75 mg PO Q12H PRN (Reason: pain) Qty: 20 0RF No Action Prozac 40 mg capsule 40 mg PO DAILY Qty: 30 0RF triamcinolone acetonide 0.5 % cream 1 applic topical BID Qty: 15 1RF Discharge Orders: Discharge ED (Routine); Ordered 04/30/25 Ordered By: Curt Campbell Discharge Diet: Usual diet Discharge Activity: Increase activity as tolerated Patient Instructions: Opioid Safety, Pain Management, Patient Portal & Alexandrea Instructions Activity Restrictions/Additional Instructions: Thank you for choosing [facility] for your healthcare needs today. It is very important that you follow up as instructed or that you return to the Emergency Department should you have concerns or if your condition changes or worsens in any way. You were seen in the emergency room after stepping on a nail with your right foot yesterday. There is no sign of infection on examination of your foot. We did update your tetanus given initial dose of antibiotic in the emergency room start oral antibiotics this evening 1 pill twice a day for 7 days. You are also given diclofenac to use for pain. If there is any drainage from the wound or you develop a fever or redness in the area recheck with your primary care doctor or return to the emergency room Print Language: Bangladeshi Coding Level of Care Code ED Tmd Teacher for Lynda Rodriguez
[2025-04-30] MEDS: tetanus-dipt-pertussis 0.5 mL SDV IM (09:50)
[2025-04-30] MEDS: ceFAZolin 1,000 MG in water for injection-sterile 2.5 ML 999 MG IM (09:51)
== END 2025-04-30 10:15 | disposition home or self-care (01) ==
PROVIDERS: Emergency Provider Family Medicine
DX: S91.331A Puncture wound without foreign body, right foot, initial encounter (principal); W22.8XXA Striking against or struck by other objects, initial encounter; Z72.0 Tobacco use
CPT/HCPCS: 73630; 90471; 90715; 96372; 99284; J0690